=== PATIENT | female | born 2000 | race Caucasian/White ===

== ENCOUNTER 2020-10-24 10:35 | Inpatient (IN) | payer OTHER ==
[2020-10-24] MEDS ORDERED: BUTORPHANOL TARTRATE 1 MG/ML VIAL IVPB PRN (11:19)
[2020-10-24 11:49] LABS: BASO % 0.5 % (0-2.0); EOS % 0.5 % (0-4.5); HEMATOCRIT 38.4 % (32.4-45.2); HEMOGLOBIN 13.1 GM/dL (10.7-15.3); LYMPH % 17.5 % (8-40); MCH 28.8 pg (25.7-33.7); MCHC 34.3 g/dl (32.0-36.0); MEAN CELL VOLUME 84.2 fl (80-96); MEAN PLT VOLUME 9.7 fl (7.5-11.1); MONO % 6.7 % (3.8-10.2); NEUT % 74.8 % (42.8-82.8); PLATELET COUNT 231 K/MM3 (134-434); RBC 4.56 M/mm3 (3.60-5.2); RDW 13.6 % (11.6-15.6); WHITE BLOOD COUNT 11.4 K/mm3 (4.0-10.0)
[2020-10-24 11:58] LABS: INR 0.95 (0.83-1.09); PROTHROMBIN TIME (PATIENT) 11.5 SEC (9.7-13.0)
[2020-10-24 12:01] LABS: ACTIVATED PTT 26.2 SECONDS (25.2-36.5)
[2020-10-24 12:03] LABS: CALCIUM 8.7 mg/dL (8.5-10.1)
[2020-10-24 12:05] LABS: BLOOD UREA NITROGEN 11.9 mg/dL (7-18)
[2020-10-24 12:08] LABS: CREATININE 0.8 mg/dL (0.55-1.3)
[2020-10-24 13:02] VITALS: BMI 28.6
[2020-10-24] MEDS ORDERED: OXYTOCIN 30 UNITS in 0.9% NS 30 UNIT/500 ML INFUS.BAG IVPB SCH (16:45)
[2020-10-24] MEDS: ELECTROLYTE-148 SOLN 1,000 ML IV SCH ×2 (16:53→22:15)
[2020-10-24] MEDS ORDERED: OXYTOCIN 30 UNITS in 0.9% NS 30 UNIT/500 ML INFUS.BAG IVPB ONE (17:03)
[2020-10-24] MEDS ORDERED: PROMETHAZINE HCL 25 MG/1 ML VIAL IVPUSH ONE (18:06)
[2020-10-24 19:35] LABS: HIV INTERPRETATION NEGATIVE (NEGATIVE)
[2020-10-24] MEDS ORDERED: BUTORPHANOL TARTRATE 2 MG/ML VIAL ONE (20:29)
[2020-10-24] MEDS ORDERED: PROMETHAZINE HCL 25 MG/1 ML VIAL ONE (20:30)
[2020-10-24] MEDS ORDERED: FENTANYL/BUPIVACAINE/NS/PF - PCEA - 50 ML DISP.SYRIN EP ONE (21:50)
[2020-10-24] MEDS ORDERED: BUPIVACAINE HCL/PF 0.25% (2.5MG/ML) 10 ML VIAL ONE (22:08)
[2020-10-24] MEDS: FENTANYL/BUPIVACAINE/NS/PF - PCEA - 50 ML DISP.SYRIN EP SCH (22:35)
[2020-10-24] MEDS ORDERED: NALOXONE HCL 0.4 MG/ML VIAL IVPUSH PRN (22:44)
[2020-10-25] MEDS ORDERED: ACETAMINOPHEN 325 MG TABLET (FP) PO PRN (02:28)
[2020-10-25] MEDS ORDERED: BENZOCAINE 28 GM HEMORRHOIDAL OINTMENT PR PRN (02:28)
[2020-10-25] MEDS ORDERED: IBUPROFEN 600 MG TABLET (FP) PO PRN (02:28)
[2020-10-25] MEDS ORDERED: WITCH HAZEL 50% (TUCKS) 40 PAD/JAR PAD TP PRN (02:28)
[2020-10-25] MEDS ORDERED: METHYLERGONOVINE MALEATE 0.2 MG/1 ML AMP IM PRN (02:28)
[2020-10-25] MEDS ORDERED: BENZOCAINE 20% 57 GM BOTTLE TP PRN (02:28)
[2020-10-25] MEDS ORDERED: BISACODYL 10 MG SUPP.RECT PR PRN (02:28)
[2020-10-25] MEDS ORDERED: OXYTOCIN 20 UNITS in 0.9% NS 20 UNIT/1,000 ML INFUS.BAG IV SCH (02:30)
[2020-10-25] MEDS ORDERED: OXYTOCIN 20 UNITS in 0.9% NS 20 UNIT/1,000 ML INFUS.BAG IV ONE (02:47)
[2020-10-25 04:02] LABS: CORD BASE EXCESS -4.8 mmol/L (0-2); CORD BASE EXCESS -5.3 mmol/L (0-2); CORD HCO3 21.3 mmHg (20-29); CORD HCO3 22.5 mmHg (20-29); CORD PCO2 43.2 mmHg (30-78); CORD PCO2 52.5 mmHg (30-78); CORD pH 7.25 (7.14-7.44); CORD pH 7.311 (7.14-7.44)
[2020-10-26 08:32] LABS: BASO % 0.5 % (0-2.0); EOS % 1.7 % (0-4.5); HEMATOCRIT 31.2 % (32.4-45.2); HEMOGLOBIN 10.8 GM/dL (10.7-15.3); LYMPH % 24.2 % (8-40); MCH 28.8 pg (25.7-33.7); MCHC 34.7 g/dl (32.0-36.0); MEAN CELL VOLUME 82.8 fl (80-96); MEAN PLT VOLUME 9.5 fl (7.5-11.1); MONO % 8.4 % (3.8-10.2); NEUT % 65.2 % (42.8-82.8); PLATELET COUNT 202 K/MM3 (134-434); RBC 3.77 M/mm3 (3.60-5.2); RDW 13.3 % (11.6-15.6); WHITE BLOOD COUNT 12.8 K/mm3 (4.0-10.0)
[2020-10-27] MEDS: FENTANYL/BUPIVACAINE/NS/PF - PCEA - 50 ML DISP.SYRIN EP SCH ×2 (07:26→07:29)
[2020-10-27 09:45] VITALS: BP 129/81; PULSE 80; TEMP 99
== END 2020-10-27 12:35 | disposition home or self-care (01) | DRG 560 ==
LOC: JDEL 10:35 → JLDR 10:55 → J3W 10-25 05:44
PROVIDERS: ADMIT Obstetrics & Gynecology; ATTEND Obstetrics & Gynecology
PROC: 10E0XZZ Delivery of Products of Conception, External Approach (ICD-10-PCS; principal; 2020-10-25)
PROC: 0HQ9XZZ Repair Perineum Skin, External Approach (ICD-10-PCS; 2020-10-25)
DX: O70.0 First degree perineal laceration during delivery (principal); Z37.0 Single live birth; Z3A.39 39 weeks gestation of pregnancy
CPT/HCPCS: 36415; 36600; 59409; 80048; 82803; 85025; 85610; 85730; 86780; 86850; 86900; 86901; 87389; C9803; U0003; U0005

== ENCOUNTER 2021-11-22 21:27 | Emergency (ER) | payer OTHER ==
[2021-11-22 21:34] VITALS: BP 130/86; PULSE 78; TEMP 98.1; BMI 25.7
[2021-11-22 23:27] LABS: BASO % 0.6 % (0-2.0); EOS % 0.9 % (0-4.5); HEMATOCRIT 35.3 % (32.4-45.2); HEMOGLOBIN 12.3 GM/dL (10.7-15.3); LYMPH % 18.4 % (8-40); MCHC 34.9 g/dl (32.0-36.0); MEAN CELL VOLUME 80.3 fl (80-96); MONO % 5.7 % (3.8-10.2); NEUT % 74.4 % (42.8-82.8); PLATELET COUNT 312 10^3/uL (134-434); RDW 14.7 % (11.6-15.6); WHITE BLOOD COUNT 11.8 K/mm3 (4.0-10.0)
== END 2021-11-23 01:52 | disposition home or self-care (01) ==
LOC: JER 21:27
DX: O20.8 Other hemorrhage in early pregnancy (principal); Z3A.17 17 weeks gestation of pregnancy
CPT/HCPCS: 36415; 76815; 84702; 85025; 86850; 86900; 86901; 99284-25

== ENCOUNTER 2022-04-29 08:20 | Inpatient (IN) | payer OTHER ==
[2022-04-29 09:32] LABS: BASO % 0.5 % (0-2.0); EOS % 0.2 % (0-4.5); HEMATOCRIT 37.4 % (32.4-45.2); HEMOGLOBIN 12.4 GM/dL (10.7-15.3); LYMPH % 12.5 % (8-40); MCH 26.8 pg (25.7-33.7); MCHC 33.1 g/dl (32.0-36.0); MEAN CELL VOLUME 81.1 fl (80-96); MEAN PLT VOLUME 9.4 fl (7.5-11.1); MONO % 5.8 % (3.8-10.2); PLATELET COUNT 293 10^3/uL (134-434); RDW 13.7 % (11.6-15.6); WHITE BLOOD COUNT 14.4 K/mm3 (4.0-10.0)
[2022-04-29 09:35] VITALS: BMI 29.2
[2022-04-29 09:54] LABS: INR 0.99 (0.83-1.09); PROTHROMBIN TIME (PATIENT) 11.4 SEC (9.7-13.0)
[2022-04-29 09:57] LABS: ACTIVATED PTT 26.3 SECONDS (25.2-36.5)
[2022-04-29] MEDS ORDERED: FENTANYL/BUPIVACAINE/NS/PF - PCEA - 50 ML DISP.SYRIN EP ONE (10:00)
[2022-04-29 10:02] LABS: CALCIUM 8.8 mg/dL (8.5-10.1)
[2022-04-29 10:03] LABS: BLOOD UREA NITROGEN 7.7 mg/dL (7-18)
[2022-04-29 10:06] LABS: CREATININE 0.7 mg/dL (0.55-1.3)
[2022-04-29] MEDS ORDERED: NALOXONE HCL 0.4 MG/ML VIAL IVPUSH PRN (10:12)
[2022-04-29] MEDS ORDERED: FENTANYL/BUPIVACAINE/NS/PF - PCEA - 50 ML DISP.SYRIN EP SCH ×2 (10:15→11:03)
[2022-04-29] MEDS ORDERED: AMPICILLIN - 2 GM in SODIUM CHLORIDE 100 ML IVPB ONE (11:02)
[2022-04-29] MEDS ORDERED: OXYTOCIN 30 UNITS in 0.9% NS 30 UNIT/500 ML INFUS.BAG IVPB ONE (11:15)
[2022-04-29] MEDS ORDERED: ELECTROLYTE-148 SOLN 1,000 ML IV SCH (11:15)
[2022-04-29] MEDS ORDERED: OXYTOCIN 20 UNITS in 0.9% NS 20 UNIT/1,000 ML INFUS.BAG IV ONE (11:15)
[2022-04-29] MEDS ORDERED: AMPICILLIN - 1 GM in SODIUM CHLORIDE 100 ML IVPB SCH (15:15)
[2022-04-29] MEDS ORDERED: ACETAMINOPHEN 325 MG TABLET (FP) PO PRN (16:42)
[2022-04-29] MEDS ORDERED: BENZOCAINE 20% 57 GM BOTTLE TP PRN (16:42)
[2022-04-29] MEDS ORDERED: METHYLERGONOVINE MALEATE 0.2 MG/1 ML AMP IM PRN (16:42)
[2022-04-29] MEDS ORDERED: WITCH HAZEL 50% (TUCKS) 40 PAD/JAR PAD TP PRN (16:42)
[2022-04-29] MEDS ORDERED: BENZOCAINE 28 GM HEMORRHOIDAL OINTMENT TP PRN (16:42)
[2022-04-29] MEDS ORDERED: IBUPROFEN 600 MG TABLET (FP) PO PRN (16:42)
[2022-04-29] MEDS ORDERED: oxyCODONE HCL 5 MG TABLET PO PRN (16:42)
[2022-04-29] MEDS ORDERED: BISACODYL 10 MG SUPP.RECT RC PRN (16:42)
[2022-04-29] MEDS ORDERED: OXYTOCIN 20 UNITS in 0.9% NS 20 UNIT/1,000 ML INFUS.BAG IV SCH (16:45)
[2022-04-30 08:06] LABS: BASO % 0.4 % (0-2.0); EOS % 1.1 % (0-4.5); HEMATOCRIT 32.2 % (32.4-45.2); HEMOGLOBIN 10.9 GM/dL (10.7-15.3); LYMPH % 21.3 % (8-40); MCH 27.6 pg (25.7-33.7); MEAN CELL VOLUME 81.2 fl (80-96); MEAN PLT VOLUME 9.1 fl (7.5-11.1); MONO % 6.9 % (3.8-10.2); NEUT % 70.3 % (42.8-82.8); PLATELET COUNT 241 10^3/uL (134-434); RBC 3.97 M/mm3 (3.60-5.2); RDW 13.9 % (11.6-15.6); WHITE BLOOD COUNT 13.6 K/mm3 (4.0-10.0)
[2022-04-30] MEDS ORDERED: SENNOSIDES/DOCUSATE COMBO (SENNA PLUS) TABLET (UD) PO PRN (22:00)
[2022-05-01 10:33] VITALS: BP 121/83; PULSE 86; RESP 16; TEMP 98.2
== END 2022-05-01 12:10 | disposition home or self-care (01) | DRG 560 ==
LOC: JLDR 08:20 → J3W 17:00
PROVIDERS: ADMIT Specialist; ATTEND Specialist
PROC: 10E0XZZ Delivery of Products of Conception, External Approach (ICD-10-PCS; principal; 2022-04-29)
DX: O80 Encounter for full-term uncomplicated delivery (principal); Z3A.39 39 weeks gestation of pregnancy; Z37.0 Single live birth
CPT/HCPCS: 36415; 80048; 85025; 85610; 85730; 86780; 86850; 86900; 86901; C9803-CS; U0003; U0005

== ENCOUNTER 2023-06-06 12:18 | Observation (INO) | payer OTHER ==
[2023-06-06 14:20] LABS: BASO % 0.5 % (0-2.0); EOS % 0.4 % (0-4.5); HEMATOCRIT 37.5 % (32.4-45.2); HEMOGLOBIN 12.8 GM/dL (10.7-15.3); MCH 27.5 pg (25.7-33.7); MEAN CELL VOLUME 80.9 fl (80-96); MEAN PLT VOLUME 8.2 fl (7.5-11.1); MONO % 6.4 % (3.8-10.2); NEUT % 73.7 % (42.8-82.8); PLATELET COUNT 291 10^3/uL (134-434); RBC 4.63 M/mm3 (3.60-5.2); RDW 13.5 % (11.6-15.6); WHITE BLOOD COUNT 9.2 K/mm3 (4.0-10.0)
[2023-06-06 14:24] LABS: INR 1.03 (0.83-1.09)
[2023-06-06 14:27] LABS: ACTIVATED PTT 27.1 SECONDS (25.2-36.5)
[2023-06-06 14:37] LABS: CALCIUM 8.6 mg/dL (8.5-10.1)
[2023-06-06 14:38] LABS: ALBUMIN 2.7 g/dl (3.4-5.0); BLOOD UREA NITROGEN 6.3 mg/dL (7-18)
[2023-06-06 14:40] LABS: URIC ACID 4.5 mg/dL (2.6-7.2)
[2023-06-06 14:41] LABS: CREATININE 0.7 mg/dL (0.55-1.3)
[2023-06-06 14:42] LABS: BILIRUBIN,TOTAL 0.5 mg/dL (0.2-1); TOT PROT 6.6 g/dl (6.4-8.2)
[2023-06-06 21:22] VITALS: BMI 30.9
[2023-06-07 07:20] VITALS: RESP 17
[2023-06-07 14:23] VITALS: BP 137/85; PULSE 79; TEMP 97.9
[2023-06-07 14:58] LABS: CREATININE 0.6 mg/dL (0.55-1.3)
[2023-06-07 16:39] LABS: CREATININE, URINE RANDOM 69.6 mg/dL (30-150)
== END 2023-06-07 14:15 | disposition home or self-care (01) ==
LOC: JDEL 12:18 → JLDR 20:05
PROVIDERS: ADMIT Obstetrics & Gynecology; ATTEND Obstetrics & Gynecology
DX: O26.893 Other specified pregnancy related conditions, third trimester (principal); Z3A.35 35 weeks gestation of pregnancy
CPT/HCPCS: 36415; 80053; 82570; 82575; 84156; 84550; 85025; 85610; 85730; G0378

== ENCOUNTER 2023-06-21 09:38 | Inpatient (IN) | payer OTHER ==
[2023-06-21 10:36] LABS: BASO % 0.4 % (0-2.0); EOS % 0.7 % (0-4.5); HEMATOCRIT 35.1 % (32.4-45.2); HEMOGLOBIN 12.3 GM/dL (10.7-15.3); MCH 28.3 pg (25.7-33.7); MCHC 35.1 g/dl (32.0-36.0); MEAN CELL VOLUME 80.6 fl (80-96); MEAN PLT VOLUME 8.7 fl (7.5-11.1); MONO % 6.8 % (3.8-10.2); NEUT % 72.1 % (42.8-82.8); PLATELET COUNT 228 10^3/uL (134-434); RBC 4.36 M/mm3 (3.60-5.2); RDW 13.8 % (11.6-15.6); RETICULOCYTES 1.29 % (0.5-1.5)
[2023-06-21 10:38] VITALS: BMI 30.9
[2023-06-21 10:43] LABS: INR 1.03 (0.83-1.09); PROTHROMBIN TIME (PATIENT) 11.9 SEC (9.7-13.0)
[2023-06-21 10:45] LABS: ACTIVATED PTT 25.1 SECONDS (25.2-36.5)
[2023-06-21] MEDS: ELECTROLYTE-148 SOLN 1,000 ML IV SCH (11:00)
[2023-06-21 11:24] LABS: POTASSIUM 4.1 mmol/L (3.5-5.1)
[2023-06-21 11:26] LABS: CALCIUM 8.5 mg/dL (8.5-10.1)
[2023-06-21 11:27] LABS: BLOOD UREA NITROGEN 7.6 mg/dL (7-18)
[2023-06-21 11:30] LABS: CREATININE 0.7 mg/dL (0.55-1.3)
[2023-06-21 11:32] LABS: URIC ACID 4.5 mg/dL (2.6-7.2)
[2023-06-21] MEDS: MISOPROSTOL 25 MCG TABLET (COMPOUNDED BY PHARMACY) PV ONE (13:02)
[2023-06-21] MEDS ORDERED: PENICILLIN G POTASSIUM 5,000,000 UNIT/250 ML BAG IVPB ONE (15:07)
[2023-06-21] MEDS: PENICILLIN G POTASSIUM 5,000,000 UNIT in SODIUM CHLORIDE 250 ML IVPB ONE (15:35)
[2023-06-21] MEDS: MISOPROSTOL 25 MCG TABLET (COMPOUNDED BY PHARMACY) BUC ONE (16:10)
[2023-06-21] MEDS: PENICILLIN G POTASSIUM 2,500,000 UNIT in SODIUM CHLORIDE 100 ML IVPB SCH (18:44)
[2023-06-21] MEDS: OXYTOCIN 30 UNITS in 0.9% NS 30 UNIT/500 ML INFUS.BAG IVPB SCH (20:15)
[2023-06-21] MEDS ORDERED: FENTANYL/BUPIVACAINE/NS/PF - PCEA - 50 ML DISP.SYRIN EP ONE (22:11)
[2023-06-21] MEDS ORDERED: NALOXONE HCL 0.4 MG/ML VIAL IVPUSH PRN (22:22)
[2023-06-21] MEDS ORDERED: FENTANYL CITRATE/PF 50 MCG/ML VIAL ONE (22:23)
[2023-06-21] MEDS ORDERED: BUPIVACAINE HCL/PF 0.25% (2.5MG/ML) 10 ML VIAL ONE (22:24)
[2023-06-21] MEDS: FENTANYL/BUPIVACAINE/NS/PF - PCEA - 50 ML DISP.SYRIN EP SCH (22:45)
[2023-06-22] MEDS ORDERED: FENTANYL/BUPIVACAINE/NS/PF - PCEA - 50 ML DISP.SYRIN EP ONE ×2 (02:33→06:06)
[2023-06-22] MEDS ORDERED: OXYTOCIN 20 UNITS in 0.9% NS 20 UNIT/1,000 ML INFUS.BAG IV ONE (06:59)
[2023-06-22] MEDS: OXYTOCIN 20 UNITS in 0.9% NS 20 UNIT/1,000 ML INFUS.BAG IV SCH (09:00)
[2023-06-22 09:12] LABS: CORD BASE EXCESS -5.3 mmol/L (0-2); CORD BASE EXCESS -6.6 mmol/L (0-2); CORD HCO3 21.1 mmHg (20-29); CORD HCO3 21.9 mmHg (20-29); CORD PCO2 43.9 mmHg (30-78); CORD pH 7.218 (7.14-7.44); CORD pH 7.299 (7.14-7.44)
[2023-06-22] MEDS ORDERED: ACETAMINOPHEN 325 MG TABLET (FP) PO PRN (09:15)
[2023-06-22] MEDS ORDERED: BISACODYL 10 MG SUPP.RECT RC PRN (09:15)
[2023-06-22] MEDS ORDERED: WITCH HAZEL 50% (TUCKS) 40 PAD/JAR PAD TP PRN (09:15)
[2023-06-22] MEDS ORDERED: BENZOCAINE 20% 57 GM BOTTLE TP PRN (09:15)
[2023-06-22] MEDS ORDERED: BENZOCAINE 28 GM HEMORRHOIDAL OINTMENT TP PRN (09:15)
[2023-06-22] MEDS: PRENATAL VITAMINS W/ FOLIC ACID TABLET (FP) PO SCH (13:20)
[2023-06-23 08:12] LABS: BASO % 0.5 % (0-2.0); EOS % 1.4 % (0-4.5); HEMATOCRIT 36.8 % (32.4-45.2); HEMOGLOBIN 12.3 GM/dL (10.7-15.3); LYMPH % 23.7 % (8-40); MCH 27.5 pg (25.7-33.7); MCHC 33.3 g/dl (32.0-36.0); MEAN CELL VOLUME 82.6 fl (80-96); MEAN PLT VOLUME 8.9 fl (7.5-11.1); MONO % 6.5 % (3.8-10.2); NEUT % 67.9 % (42.8-82.8); PLATELET COUNT 224 10^3/uL (134-434); RBC 4.46 M/mm3 (3.60-5.2); RDW 13.7 % (11.6-15.6); WHITE BLOOD COUNT 13.3 K/mm3 (4.0-10.0)
[2023-06-23] MEDS: PENICILLIN G POTASSIUM 5,000,000 (5Mm) UNIT VIAL IVPB SCH (11:39)
[2023-06-23] MEDS: PENICILLIN G POTASSIUM 5,000,000 (5Mm) UNIT VIAL IVPB ONE (11:39)
[2023-06-23] MEDS: IBUPROFEN 600 MG TABLET (FP) PO PRN (20:33)
[2023-06-23] MEDS ORDERED: SENNOSIDES/DOCUSATE COMBO (SENNA PLUS) TABLET (UD) PO PRN (22:00)
[2023-06-24 09:11] VITALS: BP 121/71; PULSE 64; RESP 17; TEMP 98
== END 2023-06-24 13:00 | disposition home or self-care (01) | DRG 560 ==
LOC: JLDR 09:38 → J3W 06-22 10:50
PROVIDERS: ADMIT Obstetrics & Gynecology; ATTEND Obstetrics & Gynecology
PROC: 0U7C7ZZ Dilation of Cervix, Via Natural or Artificial Opening (ICD-10-PCS; 2023-06-21)
PROC: 3E0P7VZ Introduction of Hormone into Female Reproductive, Via Natural or Artificial Opening (ICD-10-PCS; 2023-06-21)
PROC: 3E033VJ Introduction of Other Hormone into Peripheral Vein, Percutaneous Approach (ICD-10-PCS; 2023-06-21)
PROC: 10E0XZZ Delivery of Products of Conception, External Approach (ICD-10-PCS; principal; 2023-06-22)
DX: O13.4 Gestational [pregnancy-induced] hypertension without significant proteinuria, complicating childbirth (principal); Z3A.37 37 weeks gestation of pregnancy; Z37.0 Single live birth
CPT/HCPCS: 36415; 36600; 80048; 82570; 82803; 82977; 83010; 84156; 84450; 84460; 84550; 85025; 85045; 85610; 85730; 86780; 86850; 86900; 86901